=== PATIENT | female | born 1945 | race Caucasian/White ===

== ENCOUNTER 2016-11-15 15:30 | Outpatient (RCR) | payer OTHER | END 2016-12-02 | disposition home or self-care (01) | LOC: PTY 15:30 | DX: M79.1 Myalgia (principal) ==

== ENCOUNTER → 2017-02-02 | Outpatient (RCR) | payer OTHER | END | disposition home or self-care (01) | LOC: PTY 01-10 09:15 | DX: M79.1 Myalgia (principal) ==

== ENCOUNTER 2017-02-16 10:58 | Outpatient (RCR) | payer OTHER | END 2017-03-04 | disposition home or self-care (01) | LOC: PTY 10:58 | DX: M79.1 Myalgia (principal); M54.5 Low back pain ==

== ENCOUNTER 2017-11-13 09:30 | Outpatient (RCR) | payer OTHER | END 2017-12-02 | disposition home or self-care (01) | LOC: PTY 09:30 | PROVIDERS: ATTEND Internal Medicine | DX: M25.552 Pain in left hip (principal); R10.2 Pelvic and perineal pain ==